=== PATIENT | female | born 1960 | race Caucasian/White ===

== ENCOUNTER 2016-10-13 18:25 | Emergency (ER) | payer SELFPAY ==
[~2016-10-13] VITALS: Ht 172.7 cm; Wt 92.0 kg
[~2016-10-13 18:25] MED LIST: ASPI81TA28 PO; ATOR10TA82 PO; CYAN250T PO; HYDR5SYP11 PO; LISI10TA PO; NAPR220T40 PO
[2016-10-13 18:35] VITALS: TEMP 36.7; Ht 172.7 cm; Wt 92.0 kg
[2016-10-13] MEDS ORDERED: CYAN500T PO (19:36)
[2016-10-13 19:38] LABS: BASO % 0.1 %; BASO ABS # 0.01 K/uL (0-0.2); COMPLETE YES; EOS % 0.6 %; HEMATOCRIT 42.6 % (37-47); IG% 0.1 %; LYMPH % 39.4 %; LYMPH ABS # 3.03 K/uL (1.2-3.4); MEAN CELL VOLUME 96.4 fL (80-100); MEAN CORPUSCULAR HEMOGLOBIN 32.8 pg (25-34); MEAN PLATELET VOLUME 9.6 fL (7.4-10.4); MONO % 7.7 %; NEUT % 52.1 %; PLATELET COUNT 205 K/uL (130-400); RED BLOOD COUNT 4.42 M/uL (4.2-5.4)
[2016-10-13] MEDS ORDERED: CRS/10 PO (19:38)
[2016-10-13 19:58] LABS: ALT/SGPT 27 U/L (12-78); BLOOD UREA NITROGEN 15 mg/dl (7-18); BUN/CREATININE RATIO 17.2 (10-20); CALCIUM 8.9 mg/dl (8.5-10.1); CARBON DIOXIDE 26 mmol/L (21-32); CHLORIDE 107 mmol/L (98-107); CREATININE 0.86 mg/dl (0.60-1.20); GLUCOSE 86 mg/dl (70-99); MAGNESIUM 2.3 mg/dl (1.8-2.4); POTASSIUM 3.9 mmol/L (3.5-5.1); SODIUM 143 mmol/L (136-145)
[2016-10-13 20:02] LABS: ALB/GLOB RATIO 1.2 (0.9-2); ALKALINE PHOSPHATASE 101 U/L (45-117); AST/SGOT 17 U/L (15-37)
--- NOTE | 2016-10-13 20:05 | DIAGNOSTIC IMAGING REPORT ---
CHEST 2 VIEWS ROUTINE CLINICAL HISTORY: cough, sob COMPARISON STUDY: No previous studies for comparison. FINDINGS: The bones soft tissues and hemidiaphragms are normal. The cardiomediastinal silhouette is normal. The lungs are clear. The pulmonary vasculature is normal. IMPRESSION: Negative chest. Electronically signed by: Winston Castro M.D. 10/13/2016 8:04 PM Dictated Date/Time: 10/13/2016 8:02 PM
[2016-10-13] MEDS ORDERED: ALBUT/IPRATROP 3MG/0.5MG NEB 3 ML VIAL INH STA ×2 (20:28→22:35)
[2016-10-13] MEDS ORDERED: OPTIRAY 320 IV PRN (21:30)
--- NOTE | 2016-10-13 22:10 | DIAGNOSTIC IMAGING REPORT ---
CHEST CTA for PULMONARY ARTERIES CT DOSE: 435.74 mGy.cm HISTORY: Chest pain dyspnea TECHNIQUE: Multiaxial CT images of the chest were performed following the intravenous administration of contrast to evaluate the pulmonary arteries. Maximal intensity projection images were also obtained. COMPARISON STUDY: None. FINDINGS: There is a normal caliber thoracic aorta with no evidence for dissection. There is no evidence for pulmonary embolus. No pleural effusions. No pneumothorax. The liver and spleen are unremarkable. No mediastinal or hilar lymphadenopathy. The central airways are patent. The lungs are clear. IMPRESSION: No evidence for pulmonary embolus. Electronically signed by: Winston Castro M.D. 10/13/2016 10:08 PM Dictated Date/Time: 10/13/2016 10:07 PM
[2016-10-13] MEDS ORDERED: METHYLPREDNISOLONE 125 MG VIAL IV STA (22:35)
[2016-10-13] MEDS ORDERED: LEVOFLOXACIN 250 MG TAB PO STA (22:50)
--- NOTE | 2016-10-13 23:04 | EMERGENCY ROOM VISIT NOTE ---
History Report prepared by Dipika: Senait Gomez Under the Supervision of: Dr. Treasure Moreno D.O. First contact with patient: 18:43 Chief Complaint: CONGESTION Stated Complaint: HEAD COLD/CHEST CONGESTION,BLOOD IN MUCAS History of Present Illness The patient is a 56 year old female who presents to the Emergency Room with complaints of persistent chest congestion starting 3 days ago. Her symptoms began with sinus congestion which has now turned into chest congestion. She has been taking congestion medications to no significant relief. She has been coughing up clear mucous with some spots of blood. She reports chills and joint aches. She had some constipation today. She is SOB when she lays down. She denies any fever, chest pain, nausea, vomiting, diarrhea, or leg swelling. She notes that she does not drink enough water sometimes. She does not have an inhaler at home. She has had pneumonia before at which time she also experienced a cough which produced mucous with spots of blood. She is on aspirin. She is currently a smoker. She believes she might have had a sick contact at work. Source of History: patient Onset: 3 days ago Position: other (global) Quality: other (chest congestion) Timing: other (persistent) Associated Symptoms: + chills, + cough, + SOB, No fevers, No chest pain, No nausea, No vomiting, No diarrhea Note: Pt reports joint aches, blood in cough. Pt denies leg swelling. Review of Systems See HPI for pertinent positives & negatives. A total of 10 systems reviewed and were otherwise negative. Past Medical & Surgical Medical Problems: (1) Hypertension (2) Pneumonia Family History Diabetes mellitus FHx: cancer Gallbladder disease Heart disease Hypertension Kidney disease Kidney stones Lung disease Social History Smoking Status: Current Every Day Smoker Marital Status: Housing Status: lives with family Occupation Status: employed Current/Historical Medications Scheduled Aspirin (Aspirin Ec), 81 MG PO DAILY Cyanocobalamin (Vitamin B-12), 500 MCG PO DAILY Levofloxacin (Levaquin), 750 MG PO DAILY Lisinopril (Prinivil), 10 MG PO DAILY Prednisone (Prednisone Tab), 3 TAB PO DAILY Rosuvastatin Calcium (Crestor), 1 TAB PO DAILY Miscellaneous Medications Naproxen Sodium (Aleve), 220 MG PO Allergies Coded Allergies: No Known Allergies (Unverified , 10/13/16) Physical Exam Vital Signs Date Time Temp Pulse Resp B/P (MAP) Pulse Ox O2 Delivery O2 Flow Rate FiO2 10/13/16 23:40 62 20 133/92 99 10/13/16 23:01 60 24 137/96 98 Room Air 10/13/16 21:19 66 20 120/99 98 Room Air 10/13/16 20:27 66 22 147/63 97 Room Air 10/13/16 19:18 96 Room Air 10/13/16 18:35 36.7 78 16 111/75 98 Physical Exam GENERAL: alert, well appearing, well nourished, no distress, non-toxic EYE EXAM: normal conjunctiva, PERRL and EOM's grossly intact OROPHARYNX: no exudate, no erythema, lips, buccal mucosa, and tongue normal and mucous membranes are moist NECK: supple, no nuchal rigidity, no adenopathy, non-tender LUNGS: Slightly decreased breath sounds bilaterally, no wheezes rhonchi rales. Wet sounding cough during examination. HEART: no murmurs, S1 normal and S2 normal ABDOMEN: abdomen soft, non-tender, normo-active bowel sounds, no masses, no rebound or guarding. BACK: Back is symmetrical on inspection and there is no deformity, no midline tenderness, no CVA tenderness. SKIN: no rashes and no bruising UPPER EXTREMITIES: upper extremities are grossly normal. LOWER EXTREMITIES: No pitting edema. Normal pulses. NEURO EXAM: Normal sensorium, cranial nerves II-XII grossly intact, normal speech, no gross weakness of arms, no gross weakness of legs. Medical Decision & Procedures ER Provider Diagnostic Interpretation: Xray results have been interpreted by the radiologist and me. Radiology results have been interpreted by the radiologist and reviewed by me. CHEST 2 VIEWS ROUTINE CLINICAL HISTORY: cough, sob COMPARISON STUDY: No previous studies for comparison. FINDINGS: The bones soft tissues and hemidiaphragms are normal. The cardiomediastinal silhouette is normal. The lungs are clear. The pulmonary vasculature is normal. IMPRESSION: Negative chest. Electronically signed by: Winston Castro M.D. 10/13/2016 8:04 PM Dictated Date/Time: 10/13/2016 8:02 PM CHEST CTA for PULMONARY ARTERIES CT DOSE: 435.74 mGy.cm HISTORY: Chest pain dyspnea TECHNIQUE: Multiaxial CT images of the chest were performed following the intravenous administration of contrast to evaluate the pulmonary arteries. Maximal intensity projection images were also obtained. COMPARISON STUDY: None. FINDINGS: There is a normal caliber thoracic aorta with no evidence for dissection. There is no evidence for pulmonary embolus. No pleural effusions. No pneumothorax. The liver and spleen are unremarkable. No mediastinal or hilar lymphadenopathy. The central airways are patent. The lungs are clear. IMPRESSION: No evidence for pulmonary embolus. Electronically signed by: Winston Castro M.D. 10/13/2016 10:08 PM Dictated Date/Time: 10/13/2016 10:07 PM Laboratory Results 10/13/16 19:25 Red Blood Count 4.42, Mean Corpuscular Volume 96.4, Mean Corpuscular Hemoglobin 32.8, Mean Corpuscular Hemoglobin Concent 34.0, Mean Platelet Volume 9.6, Neutrophils (%) (Auto) 52.1, Lymphocytes (%) (Auto) 39.4, Monocytes (%) (Auto) 7.7, Eosinophils (%) (Auto) 0.6, Basophils (%) (Auto) 0.1, Neutrophils # (Auto) 4.01, Lymphocytes # (Auto) 3.03, Monocytes # (Auto) 0.59, Eosinophils # (Auto) 0.05, Basophils # (Auto) 0.01 10/13/16 19:25 Test 10/13/16 19:25 10/13/16 20:08 White Blood Count 7.70 K/uL (4.8-10.8) Red Blood Count 4.42 M/uL (4.2-5.4) Hemoglobin 14.5 g/dL (12.0-16.0) Hematocrit 42.6 % (37-47) Mean Corpuscular Volume 96.4 fL (80-100) Mean Corpuscular Hemoglobin 32.8 pg (25-34) Mean Corpuscular Hemoglobin Concent 34.0 g/dl (32-36) Platelet Count 205 K/uL (130-400) Mean Platelet Volume 9.6 fL (7.4-10.4) Neutrophils (%) (Auto) 52.1 % Lymphocytes (%) (Auto) 39.4 % Monocytes (%) (Auto) 7.7 % Eosinophils (%) (Auto) 0.6 % Basophils (%) (Auto) 0.1 % Neutrophils # (Auto) 4.01 K/uL (1.4-6.5) Lymphocytes # (Auto) 3.03 K/uL (1.2-3.4) Monocytes # (Auto) 0.59 K/uL (0.11-0.59) Eosinophils # (Auto) 0.05 K/uL (0-0.5) Basophils # (Auto) 0.01 K/uL (0-0.2) RDW Standard Deviation 47.4 fL (36.4-46.3) RDW Coefficient of Variation 13.4 % (11.5-14.5) Immature Granulocyte % (Auto) 0.1 % Immature Granulocyte # (Auto) 0.01 K/uL (0.00-0.02) Anion Gap 10.0 mmol/L (3-11) Est Creatinine Clear Calc Drug Dose 84.6 ml/min Estimated GFR () 86.3 Estimated GFR (Non- 74.5 BUN/Creatinine Ratio 17.2 (10-20) Calcium Level 8.9 mg/dl (8.5-10.1) Magnesium Level 2.3 mg/dl (1.8-2.4) Total Bilirubin 0.3 mg/dl (0.2-1) Aspartate Amino Transf (AST/SGOT) 17 U/L (15-37) Alanine Aminotransferase (ALT/SGPT) 27 U/L (12-78) Alkaline Phosphatase 101 U/L (45-117) Troponin I < 0.015 ng/ml (0-0.045) Pro-B-Type Natriuretic Peptide 143 pg/ml (0-900) Total Protein 7.0 gm/dl (6.4-8.2) Albumin 3.8 gm/dl (3.4-5.0) Globulin 3.2 gm/dl (2.5-4.0) Albumin/Globulin Ratio 1.2 (0.9-2) Monoscreen NEG (NEG) D-Dimer 600 ug/L FEU (0-500) Laboratory results per my review. Medications Administered Medications (Trade) Dose Ordered Sig/Jaswinder Route Start Time Stop Time Status Last Admin Dose Admin Albuterol/ Ipratropium (Duoneb) 3 ml NOW STAT INH 10/13/16 20:28 10/13/16 20:29 DC 10/13/16 20:28 3 ML Albuterol/ Ipratropium (Duoneb) 3 ml NOW STAT INH 10/13/16 22:35 10/13/16 22:36 DC 10/13/16 22:57 3 ML Methylprednisolone Sodium Succinate (Solu-Medrol IV) 80 mg NOW STAT IV 10/13/16 22:35 10/13/16 22:36 DC 10/13/16 22:58 80 MG Levofloxacin (Levaquin Tab) 750 mg NOW STAT PO 10/13/16 22:50 10/13/16 22:51 DC 10/13/16 22:56 750 MG Albuterol (Ventolin Hfa Inhaler) 2 puffs NOW ONCE INH 10/13/16 23:15 10/13/16 23:16 DC 10/13/16 23:43 2 PUFFS ECG Indication: SOB/dyspnea Rate (beats per minute): 66 Rhythm: sinus rhythm Findings: no acute ischemic change, other (normal axis, normal interval, low voltage throughout) ED Course 1851: The patient was evaluated in room B11A. A complete history and physical exam was performed. 2027: Duoneb 3 ml INH. 2230: I reevaluated the patient. I updated her on the results. 2234: Solu-Medrol IV 80 mg IV, Duoneb 3 ml INH. 2250: Levofloxacin 750 mg PO. 2315: Albuterol 2 puffs INH. 2330: Upon reevaluation, the patient is feeling better. I discussed the findings and the treatment plan with the patient. She verbalizes agreement and understanding. She was discharged home. Medical Decision Differential diagnosis: Etiologies such as infections, reactive airway disease, pneumonia, pneumothorax , COPD, CHF, cardiac ischemia, pulmonary embolism, musculoskeletal, gastrointestinal, as well as others were entertained. Medication Reconciliation: I attest that I have personally reviewed the patient' s current medication list. Blood pressure screening: Patient was found to have an elevated blood pressure and was referred to their primary doctor for recheck and further treatment. Patient well-appearing here despite complaints. Labs and imaging reassuring. Given history of COPD and continued tobacco abuse, patient will be covered for COPD exacerbation. Discussed with patient antibiotics and steroids. Discussed use of MDI and spacer at bedside. Discussed need for close follow-up with family doctor, discussed symptoms to watch return to the ER for, she verbalized understanding was agreeable with plan. Patient able to family without increased work of breathing, patient not hypoxic, doubt bacteremia/sepsis. Doubt additional cardiac or vascular etiology. Doubt PE. Impression Primary Impression: COPD exacerbation Additional Impression: Acute bronchitis Scribe Attestation The scribe's documentation has been prepared under my direction and personally reviewed by me in its entirety. I confirm that the note above accurately reflects all work, treatment, procedures, and medical decision making performed by me. Departure Information Dispostion Home / Self-Care Prescriptions Levofloxacin (Levaquin) 500 Mg Tab 750 MG PO DAILY for 5 Days, #8 TAB Prov: Treasure Moreno, DO 10/13/16 Prednisone (Prednisone Tab) 20 Mg Tab 3 TAB PO DAILY, #12 TAB FOR 4 DAYS Prov: Treasure Moreno, DO 10/13/16 Referrals No Doctor, Assigned (PCP) Patient Instructions My [facility] Additional Instructions Please take the antibiotics and steroids as prescribed. You may use the inhaler and spacer, 2 puffs every 4 hours as needed for frequent coughing, chest tightness, or trouble breathing. If you feel you need to use the inhaler more frequently, feel the inhaler doesn't help, feel your breathing is getting harder, your coughing up more blood, develop fevers or chills, chest pain or pressure, vomiting, leg swelling, or you've any other new or concerning symptoms , please return the emergency room. Problem Qualifiers Additional Impression: Acute bronchitis Bronchitis organism: unspecified organism Qualified Codes: J20.9 - Acute bronchitis, unspecified
[2016-10-13] MEDS ORDERED: PRED20TA2 PO (23:08)
[2016-10-13] MEDS ORDERED: LEVO-366 PO (23:08)
[2016-10-13] MEDS ORDERED: ALBUTEROL HFA 8 GM INHALER INH ONE (23:15)
[2016-10-13 23:40] VITALS: BP 133/92; PULSE 62; O2SAT 99
[2016-12-30] MEDS ORDERED: AZIT-60 PO (22:58)
== END 2016-10-13 23:41 | disposition home or self-care (01) ==
LOC: C.EDB 18:25
DX: J20.9 Acute bronchitis, unspecified (principal); I10 Essential (primary) hypertension; F17.200 Nicotine dependence, unspecified, uncomplicated; Z87.01 Personal history of pneumonia (recurrent); Z83.3 Family history of diabetes mellitus; Z82.49 Family history of ischemic heart disease and other diseases of the circulatory system; Z84.1 Family history of disorders of kidney and ureter; Z79.82 Long term (current) use of aspirin; Z79.899 Other long term (current) drug therapy

== ENCOUNTER 2016-12-30 20:50 | Emergency (ER) | payer SELFPAY ==
[~2016-12-30] VITALS: Ht 175.3 cm; Wt 89.0 kg
[~2016-12-30 20:50] MED LIST changes: -ATOR10TA82 PO; +CRS/10 PO; -CYAN250T PO; +CYAN500T PO; -HYDR5SYP11 PO; +PRED20TA2 PO
[2016-12-30 20:55] VITALS: Ht 175.3 cm; Wt 89.0 kg
[2016-12-30] MEDS ORDERED: ALBUTEROL HFA 8 GM INHALER INH STA (21:05)
[2016-12-30] MEDS ORDERED: ALBUTEROL 0.5% NEB SOLN 2.5 MG/0.5 ML VIAL INH STA (21:05)
[2016-12-30] MEDS ORDERED: SODIUM CHLORIDE 0.9% 1000ML 1,000 ML IV STA (21:05)
[2016-12-30] MEDS ORDERED: KETOROLAC TROMETHAMINE 30 MG/ML VIAL IV STA (21:05)
--- NOTE | 2016-12-30 21:08 | EMERGENCY ROOM VISIT NOTE ---
History Report prepared by Dipika: Jojo Clifford Under the Supervision of: Dr. Ajit Armstrong M.D. First contact with patient: 21:01 Chief Complaint: FLU LIKE SX Stated Complaint: ACHES/PAINS IN JOINTS,NAUSEA History of Present Illness The patient is a 56 year old female who presents to the Emergency Room with complaints of constant abdominal pain beginning a few days ago. The patient states that she has been having intermittent chills and diaphoresis. She notes that she developed abdominal pain today and has been having nausea and vomiting. She reports that she got in the shower today after taking Pepto Bismol and was not able to keep it down. The patient complains of joint achiness and right sided head pressure, weakness, and ear pain. She notes that she has taken Aleve and cough drops without relief of her symptoms. Source of History: patient Onset: a few days ago Position: abdomen Timing: constant Modifying Factors (Relieving): other (none) Associated Symptoms: + chills, + diaphoresis, + nausea, + vomiting Note: Pt complains of head pressure, weakness, and ear pain. Review of Systems See HPI for pertinent positives & negatives. A total of 10 systems reviewed and were otherwise negative. Past Medical & Surgical Medical Problems: (1) Hypertension (2) Pneumonia Family History Diabetes mellitus FHx: cancer Gallbladder disease Heart disease Hypertension Kidney disease Kidney stones Lung disease Social History Smoking Status: Current Every Day Smoker Marital Status: Housing Status: lives with family Occupation Status: employed Current/Historical Medications Scheduled Aspirin (Aspirin Ec), 81 MG PO DAILY Azithromycin (Zithromax), 250 MG PO DAILY Cyanocobalamin (Vitamin B-12), 500 MCG PO DAILY Lisinopril (Prinivil), 10 MG PO DAILY Prednisone (Prednisone Tab), 0 PO DAILY Rosuvastatin Calcium (Crestor), 5 MG PO DAILY Varenicline (Chantix), 1 MG PO BID Miscellaneous Medications Naproxen Sodium (Aleve), 220 MG PO Allergies Coded Allergies: No Known Allergies (Unverified , 12/30/16) Physical Exam Vital Signs Date Time Temp Pulse Resp B/P (MAP) Pulse Ox O2 Delivery O2 Flow Rate FiO2 12/30/16 23:16 36.6 64 18 157/83 99 12/30/16 23:01 64 18 157/83 99 Room Air 12/30/16 21:25 62 12/30/16 20:55 36.6 69 20 113/78 98 Room Air Physical Exam GENERAL: Patient is a healthy-appearing well-nourished female HEAD: Normocephalic atraumatic EYES: Ocular movements intact pupils equal and react to light OROPHARYNX mucous membranes are moist no exudates present no erythema or edema present NECK: Supple no nuchal rigidity CHEST: Good equal expansion LUNGS: Clear and equal to auscultation CARDIAC: Normal S1 and S2 ABDOMEN: Soft tender to the LLQ no guarding BACK: No CVA tenderness EXTREMITIES: No pain upon palpation normal muscle strength in all groups no clubbing cyanosis or edema NEURO: Patient is following commands and answering questions appropriately. Alert and oriented x3 Cranial Nerves 2-12 grossly intact, no evidence of meningitis or encephalitis on exam. Medical Decision & Procedures ER Provider Diagnostic Interpretation: X-ray results as stated below per interpretation by me and the radiologist: CHEST ONE VIEW PORTABLE FINDINGS: The lungs are clear. Cardiac silhouette is normal in size. No pleural effusions. No pneumothorax. IMPRESSION: No acute process. Electronically signed by: Semaj Florez M.D. 12/30/2016 10:47 PM Dictated Date/Time: 12/30/2016 10:45 PM Laboratory Results 12/30/16 21:12 Red Blood Count 4.70, Mean Corpuscular Volume 96.4, Mean Corpuscular Hemoglobin 31.3, Mean Corpuscular Hemoglobin Concent 32.5, Mean Platelet Volume 9.5, Neutrophils (%) (Auto) 66.6, Lymphocytes (%) (Auto) 25.1, Monocytes (%) (Auto) 7.7, Eosinophils (%) (Auto) 0.2, Basophils (%) (Auto) 0.2, Neutrophils # (Auto) 7.35, Lymphocytes # (Auto) 2.77, Monocytes # (Auto) 0.85, Eosinophils # (Auto) 0.02, Basophils # (Auto) 0.02 12/30/16 21:12 Test 12/30/16 21:12 12/30/16 21:17 12/30/16 22:55 White Blood Count 11.03 K/uL (4.8-10.8) Red Blood Count 4.70 M/uL (4.2-5.4) Hemoglobin 14.7 g/dL (12.0-16.0) Hematocrit 45.3 % (37-47) Mean Corpuscular Volume 96.4 fL (80-100) Mean Corpuscular Hemoglobin 31.3 pg (25-34) Mean Corpuscular Hemoglobin Concent 32.5 g/dl (32-36) Platelet Count 257 K/uL (130-400) Mean Platelet Volume 9.5 fL (7.4-10.4) Neutrophils (%) (Auto) 66.6 % Lymphocytes (%) (Auto) 25.1 % Monocytes (%) (Auto) 7.7 % Eosinophils (%) (Auto) 0.2 % Basophils (%) (Auto) 0.2 % Neutrophils # (Auto) 7.35 K/uL (1.4-6.5) Lymphocytes # (Auto) 2.77 K/uL (1.2-3.4) Monocytes # (Auto) 0.85 K/uL (0.11-0.59) Eosinophils # (Auto) 0.02 K/uL (0-0.5) Basophils # (Auto) 0.02 K/uL (0-0.2) RDW Standard Deviation 48.5 fL (36.4-46.3) RDW Coefficient of Variation 13.6 % (11.5-14.5) Immature Granulocyte % (Auto) 0.2 % Immature Granulocyte # (Auto) 0.02 K/uL (0.00-0.02) Anion Gap 7.0 mmol/L (3-11) Est Creatinine Clear Calc Drug Dose 77.6 ml/min Estimated GFR () 77.5 Estimated GFR (Non- 66.9 BUN/Creatinine Ratio 13.4 (10-20) Calcium Level 9.6 mg/dl (8.5-10.1) Total Bilirubin 0.6 mg/dl (0.2-1) Direct Bilirubin 0.1 mg/dl (0-0.2) Aspartate Amino Transf (AST/SGOT) 14 U/L (15-37) Alanine Aminotransferase (ALT/SGPT) 18 U/L (12-78) Alkaline Phosphatase 100 U/L (45-117) Total Protein 7.0 gm/dl (6.4-8.2) Albumin 3.8 gm/dl (3.4-5.0) Lipase 113 U/L (73-393) Influenza Type A Antigen Neg for Influ A (NEG) Influenza Type B Antigen Neg for Influ B (NEG) Urine Color YELLOW Urine Appearance CLEAR (CLEAR) Urine pH 5.0 (4.5-7.5) Urine Specific Post 1.013 (1.000-1.030) Urine Protein NEG (NEG) Urine Glucose (UA) NEG (NEG) Urine Ketones NEG (NEG) Urine Occult Blood NEG (NEG) Urine Nitrite NEG (NEG) Urine Bilirubin NEG (NEG) Urine Urobilinogen NEG (NEG) Urine Leukocyte Esterase NEG (NEG) Labs reviewed by ED physician. Medications Administered Medications (Trade) Dose Ordered Sig/Jaswinder Route Start Time Stop Time Status Last Admin Dose Admin Sodium Chloride 1,000 ml @ 999 mls/hr Q1H1M STAT IV 12/30/16 21:05 12/30/16 22:05 DC 12/30/16 21:05 999 MLS/HR Ketorolac Tromethamine (Toradol Inj) 30 mg NOW STAT IV 12/30/16 21:05 12/30/16 21:07 DC 12/30/16 21:36 30 MG Albuterol (Ventolin Hfa Inhaler) 2 puffs NOW STAT INH 12/30/16 21:05 12/30/16 21:07 DC 12/30/16 21:05 2 PUFFS Albuterol Sulfate (Ventolin 0.5% 2.5MG/0.5ML Neb) 2.5 mg NOW STAT INH 12/30/16 21:05 12/30/16 21:07 DC 12/30/16 21:14 2.5 MG Methylprednisolone Sodium Succinate (Solu-Medrol IV) 60 mg NOW STAT IV 12/30/16 22:55 12/30/16 22:56 DC 12/30/16 23:10 60 MG Azithromycin (Zithromax Tab) 500 mg NOW STAT PO 12/30/16 22:55 12/30/16 22:56 DC 12/30/16 23:10 500 MG ED Course 2100: Past medical records reviewed. The patient was evaluated in room B4. A complete history and physical examination was performed. 2104: Albuterol Sulfate 2.5mg INH, Albuterol 2 puffs INH, Toradol Inj 30mg IV, Sodium Chloride 1000 ml @ 999 mls/hr IV. 2106: I recommended a CT scan of the abdomen/pelvis but she refused. 2254: Zithromax Tab 500mg PO, Solu-Medrol 60mg IV. 2299: Upon reexamination the patient is doing well. I discussed results and treatment plan with the patient. She verbalizes agreement and understanding. The patient is ready for discharge. Medical Decision Differential diagnosis: Etiologies such as viral syndrome, otitis, pharyngitis, pneumonia, influenza, meningitis, urinary tract infection, sepsis, bacteremia, as well as others were entertained. This is a 56-year-old female who presents emergency department complaining of cough and upper respiratory like symptoms. Due to the patient complaint she was given a breathing treatment along with an albuterol inhaler. She was also started on azithromycin and was also given Solu-Medrol. The patient does not have an elevation in her white blood count cell count and I feel can be safely discharged home. Patient was in agreement with the treatment plan. Medication Reconcilliation Current Medication List: was personally reviewed by me Blood Pressure Screening Patient's blood pressure: Normal blood pressure Blood pressure disposition: Did not require urgent referral Impression Primary Impression: Bronchitis Scribe Attestation The scribe's documentation has been prepared under my direction and personally reviewed by me in its entirety. I confirm that the note above accurately reflects all work, treatment, procedures, and medical decision making performed by me. Departure Information Dispostion Home / Self-Care Prescriptions Azithromycin (ZITHROMAX) 250 Mg Tab 250 MG PO DAILY, #4 TAB Prov: Ajit Armstrong MD 12/30/16 Prednisone (Prednisone Tab) 20 Mg Tab 0 PO DAILY, #7 TAB 2 TABS DAILY FOR 2 DAYS, THEN 1 TAB DAILY FOR 2 DAYS, THEN 1/2 TAB DAILY FOR 2 DAYS. Prov: Ajit Armstrong MD 12/30/16 Referrals No Doctor, Assigned (PCP) Forms HOME CARE DOCUMENTATION FORM, IMPORTANT VISIT INFORMATION Patient Instructions ED Bronchitis Asthmatic, My [facility] Additional Instructions Use inhaler twice every 6 hours Take 1000 mg Tylenol every 6 hours Take 600 mg Ibuprofen every 6 hours Alternate meds every 3 hours Increase fluids next 48 hours You have been examined and treated today on an emergency basis only. This is not a substitute for, or an effort to provide, complete comprehensive medical care. It is impossible to recognize and treat all injuries or illnesses in a single emergency department visit. It is therefore important that you follow up closely with your PCP. Call as soon as possible for an appointment. Thank you for your time and consideration. I look forward to speaking with you again soon. Please don't hesitate to call us if you have any questions.
[2016-12-30 21:45] LABS: BASO % 0.2 %; BASO ABS # 0.02 K/uL (0-0.2); COMPLETE YES; EOS % 0.2 %; HEMATOCRIT 45.3 % (37-47); IG% 0.2 %; LYMPH % 25.1 %; LYMPH ABS # 2.77 K/uL (1.2-3.4); MEAN CELL VOLUME 96.4 fL (80-100); MEAN CORPUSCULAR HEMOGLOBIN 31.3 pg (25-34); MEAN CORPUSCULAR HGB CONC 32.5 g/dl (32-36); MEAN PLATELET VOLUME 9.5 fL (7.4-10.4); MONO % 7.7 %; NEUT % 66.6 %; PLATELET COUNT 257 K/uL (130-400); WHITE BLOOD COUNT 11.03 K/uL (4.8-10.8)
[2016-12-30] MEDS ORDERED: CHN/1 PO (21:49)
[2016-12-30 22:12] LABS: BUN/CREATININE RATIO 13.4 (10-20); CALCIUM 9.6 mg/dl (8.5-10.1); CREATININE 0.94 mg/dl (0.60-1.20); POTASSIUM 3.9 mmol/L (3.5-5.1)
--- NOTE | 2016-12-30 22:48 | DIAGNOSTIC IMAGING REPORT ---
CHEST ONE VIEW PORTABLE HISTORY: Pt c/o weakness COMPARISON: Chest 10/13/2016. FINDINGS: The lungs are clear. Cardiac silhouette is normal in size. No pleural effusions. No pneumothorax. IMPRESSION: No acute process. Electronically signed by: Semaj Florez M.D. 12/30/2016 10:47 PM Dictated Date/Time: 12/30/2016 10:45 PM
[2016-12-30] MEDS ORDERED: AZITHROMYCIN 250 MG TAB PO STA (22:55)
[2016-12-30] MEDS ORDERED: METHYLPREDNISOLONE 125 MG VIAL IV STA (22:55)
[2016-12-30] MEDS ORDERED: AZIT250T5 PO (22:58)
[2016-12-30] MEDS ORDERED: PRED20TA2 PO (22:58)
[2016-12-30 23:16] VITALS: BP 157/83; PULSE 64; TEMP 36.6; O2SAT 99
[2016-12-30 23:20] LABS: MANUAL MICROSCOPIC REQUIRED? NO; REVIEW REQ? NO; URINE APPEARANCE CLEAR (CLEAR); URINE BILIRUBIN NEG (NEG); URINE COLOR YELLOW; URINE NITRITE NEG (NEG); URINE SPECIFIC GRAVITY 1.013 (1.000-1.030); UROBILINOGEN NEG (NEG)
[2016-12-31 03:15] LABS: INFLUENZA A PCR Neg for Influ A (NEG); INFLUENZA B PCR Neg for Influ B (NEG)
== END 2016-12-30 23:15 | disposition home or self-care (01) ==
LOC: C.EDB 20:52
DX: J40 Bronchitis, not specified as acute or chronic (principal); I10 Essential (primary) hypertension; Z87.01 Personal history of pneumonia (recurrent); Z83.3 Family history of diabetes mellitus; Z80.9 Family history of malignant neoplasm, unspecified; Z82.49 Family history of ischemic heart disease and other diseases of the circulatory system; Z84.1 Family history of disorders of kidney and ureter; F17.210 Nicotine dependence, cigarettes, uncomplicated; Z79.82 Long term (current) use of aspirin; Z79.899 Other long term (current) drug therapy

== ENCOUNTER → 2017-08-13 | Outpatient (CLI) | payer OTHER ==
[~2017-08-13] MED LIST changes: +CHN/1 PO; -PRED20TA2 PO
--- NOTE | 2017-08-14 14:44 | MAMMOGRAPHY REPORT ---
BILATERAL DIGITAL SCREENING MAMMOGRAM TOMOSYNTHESIS WITH CAD: 08/13/2017 CLINICAL HISTORY: Routine screening. Patient has no complaints. TECHNIQUE: Breast tomosynthesis in addition to standard 2D mammography was performed. Current study was also evaluated with a Computer Aided Detection (CAD) system. COMPARISON: Comparison is made to exams dated: 02/23/2015 mammogram, 02/11/2014 mammogram, 02/06/2013 mammogram, 10/11/2010 mammogram, 10/10/2009 mammogram, and 08/18/2008. BREAST COMPOSITION: There are scattered areas of fibroglandular density in both breasts. FINDINGS: Scattered and grouped punctate benign-appearing microcalcifications bilaterally. No suspic ious mass, architectural distortion or cluster of new, suspicious microcalcifications is seen. IMPRESSION: ACR BI-RADS CATEGORY 1: NEGATIVE There is no mammographic evidence of malignancy. A 1 year screening mammogram is recommended. The pa tient will receive written notification of the results. Approximately 10% of breast cancers are not detected with mammography. A negative mammographic report should not delay biopsy if a clinically suggestive mass is present. Anushka Valdovinos M.D. ay/:08/13/2017 15:26:57 Design Supervisor: Sharyn LUCERO)(M), [facility] letter sent: Normal 1/2 BI-RADS Code: ACR BI-RADS Category 1: Negative
== END | disposition home or self-care (01) ==
LOC: C.MAMM 14:15
PROVIDERS: ATTEND Neuromusculoskeletal Medicine & OMM
DX: Z12.31 Encounter for screening mammogram for malignant neoplasm of breast (principal)